=== PATIENT | male | born 1955 | race Caucasian/White ===

== ENCOUNTER 2022-01-10 11:26 | Emergency (ER) | payer MEDICARE ==
[~2022-01-10] VITALS: Ht 182.9 cm; Wt 166.9 kg
[2022-01-10] MEDS ORDERED: GABAPENTIN300 MG PO (14:27)
[2022-01-10] MEDS ORDERED: ANAPROX DS550 MG PO (14:27)
== END 2022-01-10 14:45 | disposition home or self-care (01) ==
LOC: ER 12:13
DX: M54.12 Radiculopathy, cervical region (principal); M50.30 Other cervical disc degeneration, unspecified cervical region; I10 Essential (primary) hypertension; E11.9 Type 2 diabetes mellitus without complications; E78.5 Hyperlipidemia, unspecified; E66.9 Obesity, unspecified
CPT/HCPCS: 72125; 99283